=== PATIENT | male | born 1995 | race Caucasian/White ===

== ENCOUNTER 2019-03-07 09:38 | Emergency (ER) | payer MEDICAID ==
[~2019-03-07] VITALS: Ht 185.4 cm; Wt 104.3 kg
[2019-03-07 09:39] VITALS: BP 122/66
--- NOTE | 2019-03-07 09:39 | NUR ---
PATIENT AMBULATED TO BED 4 AT THIS TIME.
--- NOTE | 2019-03-07 09:42 | NUR ---
23 Y/O M C/O FLU SYMPTOMS X1 DAY. PT STATES HE HAS A COUGH AND A FEVER THAT BEGAN YESTERDAY. NO ONE ELSE IN THE HOME IS SICK. PT COUGH IS PRODUCTIVE WITH YELLOW/GREEN PHLEGM. PT STATES HE TOOK THEREAFLU AT HOME, HAS NOT RELIEVED HIS SYMPTOMS. PT HAS A RUNNY NOSE, LUNG SOUNDS ARE CLEAR BILATERALY. PT POSITIONED FOR COMFORT, SIDE RAIL X1 IN PLACE. FAMILY AT BEDSIDE. NKA MEDHX: NONE
[2019-03-07] MEDS ORDERED: IBUPROFEN 600 MG TAB PO ONE (09:45)
--- NOTE | 2019-03-07 09:47 | NUR ---
INFLUENZA SWAB PERFORMED BY ACC STUDENT, TAKEN TO LAB
--- NOTE | 2019-03-07 09:47 | NUR ---
DR CHUA AT BEDSIDE EXAMINING PATIENT
--- NOTE | 2019-03-07 09:54 | NUR ---
PT GIVEN ORDERED MOTRIN, ABLE TO TAKE WITHOUT ANY DIFICULTIES.
--- NOTE | 2019-03-07 10:17 | NUR ---
CRITICAL LAB RECEIVED, PT POSITIVE FOR INFLUENZA A. DR CHUA NOTIFIED.
[2019-03-07] MEDS ORDERED: OSELTAMIVIR PHOSPHATE 75 MG CAP PO ONE (10:20)
[2019-03-07 10:34] VITALS: BP 122/66
--- NOTE | 2019-03-07 10:35 | NUR ---
Patient discharged with v/s stable. Written and verbal after care instructions given and explained. Patient alert, oriented and verbalized understanding of instructions. Ambulatory with steady gait. All questions addressed prior to discharge. ID band removed. Patient advised to follow up with PMD. Rx of TAMIFLU, PROMETHAZINE HYDROCHLORIDE WITH CODEINE, IBUPROFEN given. Patient educated on indication of medication including possible reaction and side effects. Opportunity to ask questions provided and answered.
== END 2019-03-07 10:35 | disposition home or self-care (01) ==
LOC: MED 09:38
DX: J10.1 Influenza due to other identified influenza virus with other respiratory manifestations (principal)
CPT/HCPCS: 87804; 99283